=== PATIENT | female | born 1955 | race Caucasian/White ===

== ENCOUNTER 2016-05-08 14:50 | Emergency (ER) | payer MEDICAID ==
[~2016-05-08] VITALS: Ht 154.9 cm; Wt 63.5 kg
[2016-05-08 14:50] VITALS: BP 121/75; PULSE 63; RESP 18; TEMP 98.2; O2SAT 100
--- NOTE | 2016-05-08 15:00 | NUR ---
TRIAGED AND BROUGHT BACK TO BED #6 AND REPORT GIVEN TO TIMMY
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
[2016-05-08] MEDS ORDERED: BACITRACIN 1 GM OINT TP ONE (15:45)
[2016-05-08] MEDS ORDERED: ACETAMINOPHEN/CODEINE 300 MG-30 MG TABLET PO ONE (15:45)
[2016-05-08] MEDS ORDERED: DIPH-TET-PERTUS Vaccine 0.5 ML VIAL (ADACEL) IM ONE (15:45)
[2016-05-08] MEDS ORDERED: LIDOCAINE/EPI 1% 1:100000 20 ML VIAL IJ ONE (15:45)
[2016-05-08] MEDS ORDERED: LIDOCAINE 4% TOPICAL 50 ML BOTTLE MM ONE (15:45)
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
--- NOTE | 2016-05-08 17:04 | NUR ---
Pt toleratred suture wound care well.
[2016-05-08 18:00] VITALS: BP 121/75; PULSE 63; RESP 18; TEMP 98.2; O2SAT 100
--- NOTE | 2016-05-08 18:00 | NUR ---
Patient given written and verbal discharge instructions and verbalizes understanding. ER MD discussed with patient the results and treatment provided. Given copies of tests performed in ER. Patient in stable condition. ID arm band removed. Rx of MOTRIN,BACITRACIN given. Patient educated on pain management and to follow up with PMD. Pain Scale 3. Opportunity for questions provided and answered.
--- NOTE | 2016-05-09 10:18 | NUR ---
RECEIVED REPORT FROM RADIOLOGY DUE TO DISCREPENCY PER DR. LAMAR AWARE. PT'S HOME CALLED AND LEFT A MESSAGE TO HAVE HER CALL THE ER
--- NOTE | 2016-05-09 10:33 | NUR ---
PT CALLED BACK 3 IDENTIFIERS PROVIDED, AND SPOKE WITH PT AND SHE WAS INFORMED THAT SHE NEEDS TO RETURN TO ER FOR REMOVAL OF FB. GIVEN PERMISSION TO SPEAK WITH HER DAUGHTER AND ALLOWED TO SPEAK ABOUT HER CARE AND ADVISED ALSO OF THE NEED TO RETURN TO ER TODAY.
== END 2016-05-08 18:00 | disposition home or self-care (01) ==
LOC: SED 14:50
DX: S41.111A Laceration without foreign body of right upper arm, initial encounter (principal); S20.412A Abrasion of left back wall of thorax, initial encounter; S20.411A Abrasion of right back wall of thorax, initial encounter; S90.812A Abrasion, left foot, initial encounter; S90.811A Abrasion, right foot, initial encounter; S60.512A Abrasion of left hand, initial encounter; S60.511A Abrasion of right hand, initial encounter; W22.8XXA Striking against or struck by other objects, initial encounter; Y93.89 Activity, other specified; Y92.89 Other specified places as the place of occurrence of the external cause; Y99.8 Other external cause status
CPT/HCPCS: 73060-TC; 90715; 99284

== ENCOUNTER 2016-05-09 14:44 | Emergency (ER) | payer MEDICAID ==
[~2016-05-09] VITALS: Ht 154.9 cm; Wt 63.5 kg
[2016-05-09 14:52] VITALS: BP 120/67; PULSE 74; RESP 16; TEMP 97.1; O2SAT 98
--- NOTE | 2016-05-09 14:56 | NUR ---
Patient to ER bed 4 to gown for evaluation. Side rails up. Report given to TIMMY CONNORS.
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
--- NOTE | 2016-05-09 15:20 | NUR ---
Sue [employer] MAN at bedside
--- NOTE | 2016-05-09 16:20 | NUR ---
Patient transported to radiology via ambulation, accompanied by rad staff.
--- NOTE | 2016-05-09 16:45 | NUR ---
Pt returned for rad dept tolerated well.
[2016-05-09 17:05] VITALS: BP 120/67; PULSE 74; RESP 16; TEMP 97.1; O2SAT 98
--- NOTE | 2016-05-09 17:05 | NUR ---
Patient given written and verbal discharge instructions and verbalizes understanding. ER MD discussed with patient the results and treatment provided. Given copies of tests performed in ER. Patient in stable condition. ID arm band removed. Patient educated on pain management and to follow up with PMD. Pain Scale 2. Opportunity for questions provided and answered.Pt given follow up insttructions for general surgury and ortho.
[2016-05-28] MEDS ORDERED: LORazepam 2 MG/ML VIAL IVP ONE (23:00)
== END 2016-05-09 17:05 | disposition home or self-care (01) ==
LOC: SED 14:44
DX: S40.851A Superficial foreign body of right upper arm, initial encounter (principal); X58.XXXA Exposure to other specified factors, initial encounter; Y93.89 Activity, other specified; Y99.8 Other external cause status; Y92.89 Other specified places as the place of occurrence of the external cause
CPT/HCPCS: 73200-TC; 99284

== ENCOUNTER 2016-05-15 13:26 | Emergency (ER) | payer MEDICAID ==
[~2016-05-15] VITALS: Ht 154.9 cm; Wt 67.1 kg
[2016-05-15 13:45] VITALS: BP 113/72; PULSE 62; RESP 18; TEMP 98.3; O2SAT 98
--- NOTE | 2016-05-15 15:38 | NUR ---
Patient to ER bed H1 to gown for evaluation. Side rails up. Report given to Mar
--- NOTE | 2016-05-15 15:48 | NUR ---
SUTURES REMOVED BY USMAN JACOBSEN, AWAITING ORDERS
[2016-05-15 16:23] VITALS: BP 121/76; PULSE 72; RESP 19; TEMP 98; O2SAT 97
--- NOTE | 2016-05-15 16:29 | NUR ---
Patient given written and verbal discharge instructions and verbalizes understanding. ER MD discussed with patient the results and treatment provided. Given copies of tests performed in ER. Patient in stable condition. ID arm band removed. Rx of NONE given. Patient educated on pain management and to follow up with PMD. Pain Scale 0/10. Opportunity for questions provided and answered.
== END 2016-05-15 16:23 | disposition home or self-care (01) ==
LOC: SED 13:26
DX: S41.111D Laceration without foreign body of right upper arm, subsequent encounter (principal); W18.39XD Other fall on same level, subsequent encounter; Y93.89 Activity, other specified; Y99.8 Other external cause status; Y92.89 Other specified places as the place of occurrence of the external cause
CPT/HCPCS: 99282